=== PATIENT | female | born 1975 | race Caucasian/White ===

== ENCOUNTER 2016-10-12 18:58 | Inpatient (IN) | payer BC ==
[~2016-10-12] VITALS: Ht 172.7 cm; Wt 64.2 kg
[2016-10-12] MEDS ORDERED: ONDANSETRON HCL/PF 4 MG/2 ML VIAL IVP ONE (19:30)
[2016-10-12] MEDS ORDERED: IV NS 0.9% 1,000 ML BAG IV ONE (19:30)
[2016-10-12] MEDS ORDERED: ONDANSETRON HCL/PF 4 MG/2 ML VIAL ONE (19:40)
[2016-10-12] MEDS ORDERED: IV SET PRIMARY 1 EA INFUS.SET MC ONE (19:40)
[2016-10-12] MEDS ORDERED: IV NS 0.9% 1,000 ML ONE (19:40)
[2016-10-12 20:02] LABS: BASOPHILS # (AUTO) 0.1 /CMM (0.0-0.2); EOSINOPHILS # (AUTO) 0.1 /CMM (0.0-0.7); HEMATOCRIT 39 % (33-45); HEMOGLOBIN 13.1 g/dL (11.5-14.8); LYMPHOCYTES % (AUTO) 10.4 % (20.0-44.0); MEAN CORPUSCULAR HEMOGLOBIN 29 PG (26.0-33.0); MEAN CORPUSCULAR HGB CONC 33 g/dl (31.0-36.0); MEAN CORPUSCULAR VOLUME 88 fL (82-100); MONOCYTES # (AUTO) 0.3 /CMM (0.1-1.30); MONOCYTES % (AUTO) 3.4 % (2.0-12.0); NEUTROPHILS # (AUTO) 8.2 /CMM (1.8-8.9); NEUTROPHILS % (AUTO) 84.2 % (43.0-81.0); PLATELET COUNT (AUTO) 395 /CMM (150-450); RED BLOOD CELL COUNT(AUTO) 4.49 MIL/uL (4.0-5.2); WHITE BLOOD COUNT (AUTO) 9.7 K/uL (4.3-11.0)
[2016-10-12 20:14] LABS: CALCIUM, SERUM 9.1 mg/dL (8.5-10.1); CREATININE 0.8 mg/dL (0.6-1.3); POTASSIUM 4.2 mmol/L (3.5-5.1)
[2016-10-12] MEDS ORDERED: DIATR MEGLU/DIATRIZOATE SODIUM 30 ML BOTTLE (GASTROGRAPHIN) ONE (20:15)
[2016-10-12 20:20] LABS: ALBUMIN 3.5 g/dL (3.4-5.0); BILIRUBIN,DIRECT 0.1 mg/dL (0.0-0.2); BILIRUBIN,TOTAL 0.5 mg/dL (0.2-1.0); TOTAL PROTEIN, SERUM 8.4 g/dL (6.4-8.2)
[2016-10-12] MEDS ORDERED: MORPHINE SULFATE INJ 4 MG/ML DISP.SYRIN ONE (20:20)
[2016-10-12] MEDS ORDERED: MORPHINE SULFATE INJ 2 MG/ML DISP.SYRIN IV ONE (20:30)
[2016-10-12] MEDS ORDERED: IV NS 0.9% 250 ML IV ONE (20:44)
[2016-10-12] MEDS ORDERED: CT SWABBABLE VALVE TRANS SET 1 EA INFUS.SET MC ONE (20:44)
[2016-10-12] MEDS ORDERED: IOHEXOL-300 100 ML VIAL IV ONE (20:44)
[2016-10-12 20:59] LABS: APPEARANCE,URINE Clear (CLEAR); BILIRUBIN,URINE Negative (NEGATIVE); BLOOD, URINE Negative Ery/uL (NEGATIVE); COLOR,URINE Dark (YELLOW); KETONES,URINE 15 (NEGATIVE); LEUKOCYTE ESTERASE ,URINE Negative (NEGATIVE); NITRITE, URINE Negative (NEGATIVE); PH,URINE 5.5 (5.0-8.0); PROTEIN,URINE 100 mg/dl (NEGATIVE); UGLUCOSE Negative (NEGATIVE); UROBILINOGEN,URINE 0.2 EU/dL (0.2)
[2016-10-12 21:00] LABS: PREGNANCY TEST URINE QUAL NEGATIVE (NEGATIVE)
[2016-10-12 21:02] LABS: RBC,URINE NONE SEEN /HPF (0-2); SQUAMOUS EPITHELIAL CELL,UR Moderate /HPF (None Seen)
[2016-10-12 21:03] LABS: MUCUS,URINE Moderate /LPF (None Seen)
[2016-10-12 21:06] LABS: BACTERIA,URINE Few /HPF (None Seen)
[2016-10-12] MEDS ORDERED: MAGNESIUM HYDROXIDE 30 ML UDC PO PRN (23:00)
[2016-10-12] MEDS ORDERED: ZOLPIDEM TARTRATE 5 MG TABLET PO PRN (23:00)
[2016-10-12] MEDS ORDERED: MAG HYDROX/AL HYDROX/SIMETH 30 ML UDC PO PRN (23:00)
[2016-10-12] MEDS ORDERED: HYDROCODONE/APAP 5/325MG 1 EACH TABLET PO PRN (23:00)
[2016-10-12] MEDS ORDERED: Z GUARD REMEDY 2 OZ OINT TP PRN (23:00)
[2016-10-12] MEDS ORDERED: IV D5W 1,000 ML IV ONE (23:23)
[2016-10-12 23:24] VITALS: BP 101/61
[2016-10-12] MEDS ORDERED: IV SET PRIMARY PUMP SET 1 EA INFUS.SET MC ONE (23:24)
[2016-10-12 23:30] VITALS: BP 101/61
[2016-10-12] MEDS: IV D5W 1,000 ML IV PRN (23:36)
[2016-10-13] MEDS: ACETAMINOPHEN 325 MG TABLET PO PRN (06:20)
[2016-10-13 08:00] VITALS: BP 104/71
[2016-10-13] MEDS ORDERED: VENL75TA4 PO (08:01)
[2016-10-13] MEDS ORDERED: MESA500C PO (08:01)
[2016-10-13] MEDS ORDERED: CITA20TA11 PO (08:01)
[2016-10-13] MEDS ORDERED: GABA-534 PO (08:01)
[2016-10-13] MEDS: PANTOPRAZOLE 40 MG VIAL IV SCH (08:38)
[2016-10-13 08:53] LABS: ALBUMIN 2.5 g/dL (3.4-5.0); BILIRUBIN,TOTAL 0.3 mg/dL (0.2-1.0); CALCIUM, SERUM 8.5 mg/dL (8.5-10.1); CREATININE 0.9 mg/dL (0.6-1.3); MAGNESIUM 1.8 mg/dL (1.8-2.4); PHOSPHORUS 4.1 mg/dL (2.5-4.9); POTASSIUM 3.6 mmol/L (3.5-5.1); TOTAL PROTEIN, SERUM 6.2 g/dL (6.4-8.2)
[2016-10-13 09:36] LABS: WHITE BLOOD COUNT (AUTO) 3.6 K/uL (4.3-11.0)
[2016-10-13 09:37] LABS: HEMATOCRIT 34 % (33-45); HEMOGLOBIN 11.4 g/dL (11.5-14.8); RED BLOOD CELL COUNT(AUTO) 3.86 MIL/uL (4.0-5.2)
[2016-10-13 09:38] LABS: MEAN CORPUSCULAR VOLUME 87 fL (82-100)
[2016-10-13 09:39] LABS: BASOPHILS % (AUTO) 0.4 % (0.0-2.0); EOSINOPHILS # (AUTO) 0.2 /CMM (0.0-0.7); EOSINOPHILS % (AUTO) 5.3 % (0.0-6.0); LYMPHOCYTES # (AUTO) 1.3 /CMM (0.8-4.8); LYMPHOCYTES % (AUTO) 36.4 % (20.0-44.0); MEAN CORPUSCULAR HEMOGLOBIN 30 PG (26.0-33.0); MEAN CORPUSCULAR HGB CONC 34 g/dl (31.0-36.0); MONOCYTES # (AUTO) 0.3 /CMM (0.1-1.30); MONOCYTES % (AUTO) 7.5 % (2.0-12.0); NEUTROPHILS # (AUTO) 1.8 /CMM (1.8-8.9); NEUTROPHILS % (AUTO) 50.4 % (43.0-81.0); PLATELET COUNT (AUTO) 298 /CMM (150-450); RDW COEFFICIENT OF VARIATION 18.1 (11.5-15.0)
[2016-10-13] MEDS: IV D5W 1,000 ML IV PRN (10:55)
[2016-10-13] MEDS ORDERED: BARIUM SULFATE SUSP 450 ML BOTTLE PO ONE (11:00)
[2016-10-13] MEDS ORDERED: BARIUM SULFATE 98% 135 ML SUSP.RECON PO ONE (11:04)
[2016-10-13] MEDS ORDERED: DIATR MEGLU/DIATRIZOATE SODIUM 120 ML BOTTLE (GASTROGRAPHIN) ONE (11:09)
[2016-10-13 16:00] VITALS: BP 109/68
[2016-10-13] MEDS: MORPHINE SULFATE INJ 2 MG/ML DISP.SYRIN IV PRN ×2 (16:05→21:26)
[2016-10-13] MEDS: ONDANSETRON HCL/PF 4 MG/2 ML VIAL IVP PRN (16:12)
[2016-10-13 17:23] VITALS: BP 109/68
[2016-10-13 20:00] VITALS: BP 115/77
[2016-10-13 22:00] VITALS: BP 115/77
[2016-10-14] MEDS: IV D5W 1,000 ML IV PRN (05:48)
[2016-10-14 08:00] VITALS: BP 107/71
[2016-10-14] MEDS: PANTOPRAZOLE 40 MG VIAL IV SCH (09:00)
[2016-10-14 16:02] VITALS: BP 113/74
[2016-10-14] MEDS: ONDANSETRON HCL/PF 4 MG/2 ML VIAL IVP PRN ×2 (16:25→22:15)
[2016-10-14] MEDS: MORPHINE SULFATE INJ 2 MG/ML DISP.SYRIN IV PRN ×2 (16:26→21:23)
[2016-10-14] MEDS: MESALAMINE 250 MG CAPSULE.SA PO SCH ×2 (17:00→20:46)
[2016-10-14] MEDS ORDERED: IV D5W 1,000 ML IV ONE (17:00)
[2016-10-14 19:57] VITALS: BP 116/86
[2016-10-15] MEDS: IV D5W 1,000 ML IV PRN (02:01)
[2016-10-15] MEDS: PANTOPRAZOLE 40 MG VIAL IV SCH (09:19)
[2016-10-15] MEDS: MESALAMINE 250 MG CAPSULE.SA PO SCH ×4 (09:19→21:00)
[2016-10-15 10:53] VITALS: BP 111/69
[2016-10-15] MEDS ORDERED: IV D5W 1,000 ML IV PRN (15:17)
[2016-10-15 16:00] VITALS: BP 110/68
[2016-10-15 20:00] VITALS: BP 124/73
[2016-10-15] MEDS: ACETAMINOPHEN 325 MG TABLET PO PRN (20:12)
[2016-10-15 21:30] VITALS: BP 124/73
[2016-10-16 08:00] VITALS: BP 122/66
[2016-10-16] MEDS: PANTOPRAZOLE 40 MG VIAL IV SCH (08:48)
[2016-10-16] MEDS: MESALAMINE 250 MG CAPSULE.SA PO SCH ×2 (08:49→13:00)
== END 2016-10-16 15:25 | disposition home or self-care (01) | DRG 389 ==
LOC: ER 19:00 → MEDSG2 22:38
PROVIDERS: ADMIT Family Medicine; ATTEND Family Medicine
DX: K56.60 Unspecified intestinal obstruction (principal); K50.90 Crohn's disease, unspecified, without complications; E44.0 Moderate protein-calorie malnutrition
CPT/HCPCS: 36415; 74000-TC; 74250-TC; 80048-TC; 80053-TC; 80076-TC; 81000-TC; 83605-TC; 83690-TC; 83735-TC; 84100-TC; 84703-TC; 85025-TC; 87081-TC; A4606; C9113; J2270; J2405; J7030; J7050; J7070; Q9963; Q9967; Z7610

== ENCOUNTER 2016-11-13 02:11 | Inpatient (IN) | payer BC ==
[~2016-11-13] VITALS: Ht 160 cm; Wt 61.2 kg
[~2016-11-13 02:11] MED LIST: CITA20TA11 PO; GABA-534 PO; MESA500C PO; VENL75TA4 PO
--- NOTE | 2016-11-13 02:41 | NUR ---
Pt ambulatory w/ steady gait to , here for c/o diffuse abd pain w/ several episodes N/V, no diarrhea x 1 wk, hx SBO, scheduled for surgery at [facility] next friday, but pt report unable to wait for sx d/t increased pain. AOx4, afebrile w/ resp even & unlabored, denies any sob, continued diffuse abd pain w/ tenderness, nausea, no vomiting at this time, lbm x today report normal, no hematoemesis, mild discomfort noted. pt in gown, on continuous monitoring. Pending further cathi abdullahi MD.
[2016-11-13] MEDS ORDERED: MORPHINE SULFATE INJ 4 MG/ML DISP.SYRIN ONE ×2 (02:57→06:19)
[2016-11-13] MEDS ORDERED: ONDANSETRON HCL/PF 4 MG/2 ML VIAL ONE (02:57)
[2016-11-13] MEDS ORDERED: IV SET PRIMARY 1 EA INFUS.SET MC ONE (02:58)
[2016-11-13] MEDS ORDERED: IV NS 0.9% 1,000 ML ONE ×2 (02:58→06:20)
--- NOTE | 2016-11-13 02:59 | NUR ---
IVHL started, labs drawn & sent. Medicated as ordered for continued nausea w/ diffuse abd pain.
[2016-11-13] MEDS ORDERED: IV NS 0.9% 1,000 ML BAG IV ONE (03:00)
[2016-11-13] MEDS ORDERED: MORPHINE SULFATE INJ 2 MG/ML DISP.SYRIN IV ONE (03:00)
[2016-11-13] MEDS ORDERED: ONDANSETRON HCL/PF 4 MG/2 ML VIAL IVP ONE (03:00)
[2016-11-13 03:07] LABS: EOSINOPHILS % (AUTO) 0.2 % (0.0-6.0); HEMATOCRIT 40 % (33-45); HEMOGLOBIN 13.5 g/dL (11.5-14.8); LYMPHOCYTES % (AUTO) 7.7 % (20.0-44.0); MEAN CORPUSCULAR HEMOGLOBIN 29 PG (26.0-33.0); MEAN CORPUSCULAR HGB CONC 34 g/dl (31.0-36.0); MEAN CORPUSCULAR VOLUME 87 fL (82-100); MONOCYTES # (AUTO) 0.1 /CMM (0.1-1.30); MONOCYTES % (AUTO) 0.8 % (2.0-12.0); NEUTROPHILS # (AUTO) 12.2 /CMM (1.8-8.9); NEUTROPHILS % (AUTO) 91.3 % (43.0-81.0); PLATELET COUNT (AUTO) 402 /CMM (150-450); RDW COEFFICIENT OF VARIATION 16.1 (11.5-15.0); RED BLOOD CELL COUNT(AUTO) 4.59 MIL/uL (4.0-5.2); WHITE BLOOD COUNT (AUTO) 13.4 K/uL (4.3-11.0)
[2016-11-13 03:21] LABS: INR 0.91 (0.87-1.13); PROTHROMBIN TIME 9.7 SECS (9.5-12.7)
[2016-11-13 03:23] LABS: BILIRUBIN,DIRECT 0.1 mg/dL (0.0-0.2); BILIRUBIN,TOTAL 0.5 mg/dL (0.2-1.0); CALCIUM, SERUM 9.5 mg/dL (8.5-10.1); CREATININE 0.9 mg/dL (0.6-1.3); POTASSIUM 4.4 mmol/L (3.5-5.1); TOTAL PROTEIN, SERUM 7.5 g/dL (6.4-8.2)
--- NOTE | 2016-11-13 03:24 | NUR ---
pt report unable to urinate at this time. pt instructed to provide urine sample as soon as able.
--- NOTE | 2016-11-13 03:37 | NUR ---
pt brought to [facility] via [facility].
--- NOTE | 2016-11-13 03:59 | NUR ---
pt ambulatory w/ steady gait to restroom. Urine obtained & sent.
[2016-11-13 04:10] LABS: APPEARANCE,URINE SL CLOUDY (CLEAR); BILIRUBIN,URINE 1+ (NEGATIVE); BLOOD, URINE NEGATIVE Ery/uL (NEGATIVE); COLOR,URINE YELLOW (YELLOW); KETONES,URINE TRACE (NEGATIVE); LEUKOCYTE ESTERASE ,URINE NEGATIVE (NEGATIVE); NITRITE, URINE NEGATIVE (NEGATIVE); PROTEIN,URINE 2+ mg/dl (NEGATIVE); UGLUCOSE TRACE mg/dL (NEGATIVE); UROBILINOGEN,URINE 0.2 EU/dL (0.2)
[2016-11-13 04:16] LABS: PREGNANCY TEST URINE QUAL NEGATIVE (NEGATIVE)
[2016-11-13 04:18] LABS: BACTERIA,URINE 3+ /HPF (None Seen); MUCUS,URINE Moderate /LPF (None Seen); RBC,URINE NONE SEEN /HPF (0-2); SQUAMOUS EPITHELIAL CELL,UR Moderate /HPF (None Seen); URINE AMORPHOUS URATE Few /HPF (None Seen); WBC,URINE 0-2 /HPF (0-3)
--- NOTE | 2016-11-13 04:29 | NUR ---
Pt resting comfortably in bed w/ resp even & unlabored, nad noted. On continuous monitoring. Awaiting test results.
--- NOTE | 2016-11-13 04:41 | NUR ---
Dr. Shearer at bedside for update on pt status.
[2016-11-13 05:04] LABS: BAND % (MANUAL) 16 % (0.0-5.0); LYMPHOCYTES % (MANUAL) 10 % (16-48); MONOCYTES % (MANUAL) 4 % (0-11.0); NEUTROPHILS % (MANUAL) 70 (42-76)
--- NOTE | 2016-11-13 05:04 | NUR ---
Incoming call fr Dr. Avitia speaking w/ Dr. Shearer.
--- NOTE | 2016-11-13 05:13 | NUR ---
pt refusing NG tube. Dr. Shearer notified.
--- NOTE | 2016-11-13 05:26 | NUR ---
Report given to MARIANA Chin for EMA. pt admission to medsur unit.
--- NOTE | 2016-11-13 05:50 | NUR ---
pt transferred via gurney to [facility] rm [id number].
--- NOTE | 2016-11-13 06:00 | NUR ---
MS2/RN RECEIVE PATIENT FROM [facility] AWAKE, ALERT, ORIENTED, WITH C/O ABD PAIN, WILL MEDICATE SOON MEDICATION ORDER AVAILABLE, NO DISTRESS NOTED, MADE COMFORTABLE IN BED, TAUGHT THE USE OF CALL LIGHT. ADMISSION DONE PER PROTOCOL. WILL MONITOR. Addendum: 11/13/16 at 0735 by TIESHA GAINES RN PATIENT STILL REFUSING NGT.
[2016-11-13 06:14] VITALS: BP 111/64
[2016-11-13] MEDS ORDERED: ENOXAPARIN SODIUM 40 MG/0.4 ML DISP.SYRIN SQ ONE (06:19)
[2016-11-13] MEDS ORDERED: IV SET PRIMARY PUMP SET 1 EA INFUS.SET MC ONE (06:21)
[2016-11-13] MEDS: IV NS 0.9% 1,000 ML IV PRN ×2 (06:27→18:12)
[2016-11-13 06:30] LABS: MAGNESIUM 1.8 mg/dL (1.8-2.4); PHOSPHORUS 4.6 mg/dL (2.5-4.9)
[2016-11-13] MEDS ORDERED: ACETAMINOPHEN 325 MG TABLET PO PRN (06:30)
[2016-11-13] MEDS ORDERED: ENOXAPARIN SODIUM 40 MG/0.4 ML DISP.SYRIN SQ SCH (06:30)
[2016-11-13] MEDS ORDERED: MORPHINE SULFATE INJ 2 MG/ML DISP.SYRIN IV PRN (06:30)
--- NOTE | 2016-11-13 07:32 | NUR ---
MS2/RN PATIENT IS SLEEPING AT THIS TIME, AROUSABLE, NO DISTRESS NOTED, ALL NEEDS ATTENDED AT THIS TIME. WILL CONTINUE TO MONITOR.
[2016-11-13 08:00] VITALS: BP 98/60
--- NOTE | 2016-11-13 08:00 | NUR ---
MS2/RN AM NOTES RECEIVE PATIENT AWAKE, ALERT, ORIENTED, WITH C/O ABD PAIN, PAIN MGT DONE ORDERED.NO DISTRESS NOTED, MADE COMFORTABLE IN BED, CALL LIGHT WITHIN REACH.WILL MONITOR.PATIENT STILL REFUSING NGT.
[2016-11-13] MEDS: PANTOPRAZOLE 40 MG VIAL IV SCH (09:35)
[2016-11-13 16:00] VITALS: BP_SYST 104; BP_DIAS 67; BP_DIAS 68
[2016-11-13] MEDS: ONDANSETRON HCL/PF 4 MG/2 ML VIAL IVP PRN (18:12)
[2016-11-13] MEDS: MORPHINE SULFATE INJ 4 MG/ML DISP.SYRIN IV PRN ×2 (18:12→22:30)
--- NOTE | 2016-11-13 19:33 | NUR ---
RESTING IN BED DENYING PAIN OR DISTRESS.CALL LIGHT PLACED WITHIN REACH.
[2016-11-13 20:00] VITALS: BP 105/64
--- NOTE | 2016-11-13 20:00 | NUR ---
RN NOTES RECEIVED PT. AWAKE ON BED, IV FLUID NS RUNNING @ 100ML/HR, DENIES PAIN, NO SOB, CALL LIGHT WITHIN REACH, SIDERAILS UPX2 CONTINUE TO MONITOR
--- NOTE | 2016-11-13 22:32 | NUR ---
RN NOTES COMPLAINED OF ABDOMINAL PAIN- MORPHINE 4 MG IV GIVEN ORDERED, V/S STABLE
[2016-11-14] MEDS: ONDANSETRON HCL/PF 4 MG/2 ML VIAL IVP PRN (05:03)
[2016-11-14] MEDS: IV NS 0.9% 1,000 ML IV PRN ×2 (05:03→18:11)
[2016-11-14] MEDS: MORPHINE SULFATE INJ 4 MG/ML DISP.SYRIN IV PRN ×3 (05:03→19:03)
--- NOTE | 2016-11-14 05:26 | NUR ---
RN NOTES COMPLAINED OF FEELING NAUSEOUS AND ABDOMINAL PAIN- ZOFRAN 4 MG IV GIVEN ORDERED, FOR NAUSEA AND MORPHINE 4 MG IV GIVEN ORDERED FOR ABDEOMINAL PAIN, V/S STABLE
--- NOTE | 2016-11-14 06:24 | NUR ---
RN NOTES AWAKE, DENIES PAIN AT THIS TIME, MORNING CARE RENDERED, PT NEEDS ATTENDED. ENDORSED TO DAYSHIFT NURSE FOR CONTINUITY OF CARE
[2016-11-14 08:00] VITALS: BP 103/64
--- NOTE | 2016-11-14 08:00 | NUR ---
MS RN NOTES. PATIENT IN BED RESTING. NO SOB OR ACUTE DISTRESS NOTED. BED IN LOW LOCKED POSITION, CALL LIGHT WITHIN REACH. WILL CONTINUE TO MONITOR.
--- NOTE | 2016-11-14 09:00 | NUR ---
MS RN NOTES PATIENT SEEN AND EVALUATED BY DR. MUSE, EDUCATED ON THE IMPORTANCE OF NG TUBE, BENEFITS. PATIENT REFUSES NG TUBE TO BE PLACED. STATES SHE HAD IT BEFORE, SHE STATES SHE HAS NO NAUSEA OR VOMITING. PAIN IS CONTROLLED. AGREED FOR KUB OF THE ABDOMEN. STATES WILL WAIT FOR SURGERY WHICH IS SCHEDULED EITHER FRIDAY OR FRIDAY AT [facility]. WILL CONTINUE TO MONITOR.
[2016-11-14] MEDS: PANTOPRAZOLE 40 MG VIAL IV SCH (09:22)
[2016-11-14] MEDS: ENOXAPARIN SODIUM 40 MG/0.4 ML DISP.SYRIN SQ SCH (09:23)
[2016-11-14 09:50] LABS: CALCIUM, SERUM 8.1 mg/dL (8.5-10.1); CREATININE 0.7 mg/dL (0.6-1.3); POTASSIUM 3.4 mmol/L (3.5-5.1)
[2016-11-14 09:56] LABS: BASOPHILS % (AUTO) 0.4 % (0.0-2.0); EOSINOPHILS # (AUTO) 0.2 /CMM (0.0-0.7); EOSINOPHILS % (AUTO) 5.4 % (0.0-6.0); HEMATOCRIT 31 % (33-45); HEMOGLOBIN 10.6 g/dL (11.5-14.8); LYMPHOCYTES # (AUTO) 1.3 /CMM (0.8-4.8); LYMPHOCYTES % (AUTO) 34.7 % (20.0-44.0); MEAN CORPUSCULAR HEMOGLOBIN 30 PG (26.0-33.0); MEAN CORPUSCULAR HGB CONC 34 g/dl (31.0-36.0); MEAN CORPUSCULAR VOLUME 88 fL (82-100); MONOCYTES # (AUTO) 0.3 /CMM (0.1-1.30); MONOCYTES % (AUTO) 7.1 % (2.0-12.0); NEUTROPHILS % (AUTO) 52.4 % (43.0-81.0); PLATELET COUNT (AUTO) 269 /CMM (150-450); RDW COEFFICIENT OF VARIATION 16.3 (11.5-15.0); RED BLOOD CELL COUNT(AUTO) 3.53 MIL/uL (4.0-5.2); WHITE BLOOD COUNT (AUTO) 3.9 K/uL (4.3-11.0)
[2016-11-14] MEDS ORDERED: POTASSIUM CHLORIDE 20 MEQ TAB.PRT.SR PO ONE (13:30)
--- NOTE | 2016-11-14 14:00 | NUR ---
MS RN NOTES PATIENT HAD LUNCH CLEAR LIQUIDS PER DR. MUSE ORDER, NO NAUSEA OR VOMITING NOTED. BUT COMPLAINS OF PAIN, PAIN MEDICATIONS ADMINISTERED. WILL CONTINUE TO MONITOR.
[2016-11-14 16:00] VITALS: BP 113/63
--- NOTE | 2016-11-14 16:00 | NUR ---
MS RN NOTES PATIENT STATES SHE DOES NOT FEEL COMFORTABLE TO BE DISCHARGED HOME STATES SHE FEELS PAIN WHEN EATING, AND STATES SHE THINKS SHE WILL GET DEHYDRATED IF SHE IS UNABLE TO EAT OR DRINK AT HOME. DR. MUSE MAD AWARE. STATES WILL COME UP TO EVALUATE AND SPEAK TO PATIENT.
--- NOTE | 2016-11-14 19:48 | NUR ---
MS RN NOTES PATIENT IN BED RESTING NO SOB OR ACUTE DISTRESS NOTED. ALL DUE MEDICATIONS ADMINISTERED. ALL NEEDS MET. WILL ENDORSE TO PM SHIFT EMA.
[2016-11-14 20:00] VITALS: BP 114/73
[2016-11-15] MEDS: MORPHINE SULFATE INJ 4 MG/ML DISP.SYRIN IV PRN (00:14)
--- NOTE | 2016-11-15 00:14 | NUR ---
RN NOTES COMPLAINED OF ABDOMINAL PAIN- MORPHINE 4 MG IV GIVEN ORDERED, V/S STABLE
[2016-11-15] MEDS: IV NS 0.9% 1,000 ML IV PRN (04:43)
--- NOTE | 2016-11-15 06:37 | NUR ---
RN NOTES SLEEPING BUT AROUSABLE, IV FLUID RUNNING, DENIES PAIN AT THIS TIME, NO SOB, MORNING CARE RENDERED, PT. NEEDS ATTENDED. ENDORSED TO DAYSHIFT NURSE FOR CONTINUITY OF CARE
[2016-11-15 08:00] VITALS: BP 113/73
--- NOTE | 2016-11-15 08:11 | NUR ---
RN NOTES RECEIVED PT. AWAKE ON BED, PERIPHERAL IV INTACT, PATENT, IV FLUID NS RUNNING @ 100ML/HR, DENIES PAIN, NO SOB, CALL LIGHT WITHIN REACH, BED IN LOW LOCKED POSITION, SIDERAILS UPX2 CONTINUE TO MONITOR.
[2016-11-15] MEDS: ENOXAPARIN SODIUM 40 MG/0.4 ML DISP.SYRIN SQ SCH (09:48)
[2016-11-15] MEDS: PANTOPRAZOLE 40 MG VIAL IV SCH (09:49)
--- NOTE | 2016-11-15 10:12 | NUR ---
PT REFUSING SMALL BOWEL FOLLOW THROUGH XRAYS. RN IS AWARE.
--- NOTE | 2016-11-15 12:00 | NUR ---
MS RN NOTES PATIENT SEEN AND EVALUATED BY DR. RICH ORDERS NOTED AND CARRIED OUT.
--- NOTE | 2016-11-15 12:30 | NUR ---
MS RN NOTES PATIENT TOLERATE DIET WELL WITH MINIMAL PAIN.
--- NOTE | 2016-11-15 13:00 | NUR ---
MS RN NOTES PATIENT DISCHARGED HOME, MD AWARE OF ALL ABNORMAL LABS. ALL BELONGINGS ACCOUNTED FOR. BELONGING LIST SIGNED. DISCHARGE TEACHING PROVIDED VERBALIZED UNDERSTANDING. PATIENT SCHEDULED FOR SURGERY AT [facility] ON FRIDAY, WILL FOLLOW UP WITH [facility]. PRESCRIPTION GIVEN TO PATIENT. IV REMOVED WITH MINIMAL BLEEDING. ID BAND ALSO REMOVED. PATIENTS SKIN INTACT. ESCORTED TO CAR.
== END 2016-11-15 13:00 | disposition home or self-care (01) | DRG 389 ==
LOC: ER 02:12 → MEDSG2 05:46
PROVIDERS: ADMIT Nurse Practitioner Acute Care; ATTEND Nurse Practitioner Acute Care
DX: K56.60 Unspecified intestinal obstruction (principal); E44.0 Moderate protein-calorie malnutrition; K50.90 Crohn's disease, unspecified, without complications; D72.829 Elevated white blood cell count, unspecified; E88.09 Other disorders of plasma-protein metabolism, not elsewhere classified; Z68.23 Body mass index [BMI] 23.0-23.9, adult; E78.00 Pure hypercholesterolemia, unspecified
CPT/HCPCS: 36415; 72128-TC; 74000-TC; 80048-TC; 80061-TC; 80076-TC; 81000-TC; 83690-TC; 83735-TC; 84100-TC; 84703-TC; 85025-TC; 85730-TC; 87081-TC; 87086-TC; A4606; C9113; J1650; J2270; J2405; J7030; Z7610